=== PATIENT | female | born 2005 | race Caucasian/White ===

== ENCOUNTER 2025-05-20 15:28 | Outpatient (CLI) | payer BC, SELFPAY ==
--- NOTE | 2025-05-20 15:30 | MR_ITS ---
EXAM: MRI EXAMINATION OF THE RIGHT WRIST WITHOUT CONTRAST CLINICAL INFORMATION: Right wrist pain. History of injury. No history of surgery to this area. Evaluate scapholunate ligament injury. TECHNICAL INFORMATION: Axial PD and T2 fat saturation. Coronal PD, T2 and STIR. Sagittal PD fat saturation and T2-weighted images acquired. No prior studies for comparison. INTERPRETATION: Bones and joints: There is a prominent appearance of ulnar minus variance. Moderate to marked abnormal marrow edema signal along the ulnar aspect of the distal radial articulating surface. No evidence for bone marrow edema signal or sclerosis, and without evidence for fracture or fragmentation of the lunate. No other abnormal bone marrow edema pattern is identified. Triangular fibrocartilage: Intact appearance of the central disc of the TFC as well as the ulnar and foveal attachments. Ligaments: Partial tearing/stripping appears present along the lunate attachment of the central, membranous portion of the scapholunate ligament. The dorsal band of the ligament appears intact. The lunotriquetral ligament is normally intact. Tendons: The flexor and extensor tendons traversing the wrist are seen to be intact. No evidence for a tendon tear or any appreciable changes of tendinopathy. No evidence for tenosynovitis. Neurovascular structures: The median neve appears normal in signal intensity and morphology within the carpal tunnel. The ulnar neurovascular structures appear unremarkable. Soft tissues: No discrete soft tissue ganglion cyst is identified. CONCLUSION: 1. Prominent ulnar minus variance is identified. The TFC complex is seen to be intact. 2. No evidence for ischemia/necrosis of the lunate. 3. Moderate to marked bone marrow edema signal along the ulnar aspect of the distal radial articulating surface. No signal alteration within the adjacent lunate to indicate to indicate this as degenerative in etiology. This may be related to osseous contusion or stress reaction. 4. Partial tearing/stripping appears present along the lunate attachment of the central, membranous portion of the scapholunate ligament. If clinically indicated, arthrogram MRI could provide more accurate and detailed evaluation of the ligament. 5. No evidence for tendon pathology. 6. No soft tissue ganglion cyst. KES Electronically signed on 05/23/2025 8:10:00 AM by Jorge Luis Jaimes M.D.
== END 2025-05-20 15:29 | disposition home or self-care (01) ==
LOC: MRI 15:28
PROVIDERS: PCP Internal Medicine; Visit Provider Physician Assistant Surgical
DX: M25.531 Pain in right wrist (principal); S63.501A Unspecified sprain of right wrist, initial encounter; S69.91XA Unspecified injury of right wrist, hand and finger(s), initial encounter
CPT/HCPCS: 73221

== ENCOUNTER 2025-05-24 11:08 | Emergency (ER) | payer BC, SELFPAY ==
--- OUTSIDE RECORDS SUMMARY | 2008-11-28 08:30 | XMS_ITS | Continuity of Care Document ---
Author Organization [facility] Address [address] [address] [place] [address] Phone Care Team Providers Care Senior Education Specialist Name Role Phone Unavailable Unavailable Unavailable Allergies, Adverse Reactions, Alerts Substance Reaction Status Criticality No Known allergies Medications Medication Instructions Dosage Effective Dates (start - stop) Status Comments Miralax 17 gram/dose Oral Powder Use as directed-1/2-3/4ca pful daily - Active BENEFIBER (unknown strength) 1 teaspoon once daily Not Available - No Longer Active Miralax 17 gmsPOWDER Take 1 capful in 8 ounces of fluid every day - No Longer Active Procedures Procedure Date Offic/outpt E&m Estab Low-mod 9 Routine Serum Collection [id number] Offic Cons New/estab Mod 40 Mi 08 Results Test Name Date and Time Measure Units Reference Range Abnormal Flag Status Comments Panel Description: TSH Final TSH 2008 08:02:0 0 1.900 uIU/mL 0.460-8.100 Final Performed by: BELIA (1) Panel Description: Glia(IgG/A)+IgA+T-LOMAS Final Immunoglobulin A, Qn, Serum 2008 07:25:0 0 64 mg/dL 20-100 Final Performed by:Rowan Gonsales1) Deamidated Gliadin Abs, IgA 2008 11:00:0 0 0.7 U/mL 0.0-10.0 Final Performed by:Erasmo N (2) Deamidated Gliadin Abs, IgG 2008 11:00:0 0 0.7 U/mL 0.0-10.0 Final Performed by:Erasmo N (2) t-Transglutaminas e (tTG) IgA 2008 09:49:0 0 1 U/mL 0-3 Final Negative 0 - 3 Weak Positive 4 - 10 Positive >10 . Tissue Transglutaminase (tTG) has been identified as the endomysial antigen. Studies have demonstr- ated that endomysial IgA antibodies have over 99% specificity for gluten sensitive enteropathy.Perfor med by:BN (2) Advance Directives Directive Yes / No Effective Date File Name Resuscitation Not Answered N/A N/A Life Support Not Answered N/A N/A Intubation Not Answered N/A N/A Antibiotics Not Answered N/A N/A IV Fluid Support Not Answered N/A N/A Tube Feed Not Answered N/A N/A Other Directive N/A N/A WARNING:The information contained in this section is historical and is provided for information only and does not constitute a legal document or any assurance that the information is still accurate. Please verify the information with the grimaldo of the legal document before using it for clinical purposes. Encounters Encounter Description Practice Location Reason(s) For Visit Diagnoses Date Provider Providers Copied on Encounter Offic/outpt E&m Estab Low-mod [facility], [address] [address], [place], [place], [id number], tel:[phone] Pediatric Clinic Constipation (chief complaint) Constipation Unspecified 9 No Information Referring Provider: Jairo Price, [address] [place] [address], [address]. tel:[phone] Offic Cons New/estab Mod 40 Mi [facility], [address] [address], [place], [place], [id number], tel:[phone] Pediatric Clinic Constipation Unspecified 8 No Information Referring Provider: Jairo Price, [address] [place] [address] [place], [address]. tel:[phone] Family History Family Member Type Diagnosis Age At Onset First degree family history Problem (finding) peptic u lceration First degree family history Problem (finding) No history of Colon Rectal Cancer First degree family history Problem (finding) No Family history of No history of Colon Polyps First degree family history Problem (finding) No history of Ulcerative Colitis Paternal grandmother Problem (finding) peptic ulcerati on First degree family history Problem (finding) No histo ry of Crohn's Paternal grandmother Problem (finding) GERD Payers Payer name Insurance type Covered libertarian ID Authoriza tion(s) No Information Social History Type Description Quantity Date Captured Comments Alcohol Use Details Unknown Caffeine Use Details Unknown Tobacco Use Status No Information Smoking Status No Information Sex Female Chief Complaint And Reason For Visit From encounter dated '11/28/2008 14:30'. Constipation (chief complaint) Reason For Referral Reason For Referral No Information History Of Present Illness Encounter Date Complaint History Of Prese nt Illness No Information Functional Status Date Functional Assessmen t No Information Instructions Date Instruction Additional Infor mation No Information Assessments Type Assessment Date No Information Patient Care Teams Name Effective Dates (start - stop) Status Members No Information
--- OUTSIDE RECORDS SUMMARY | 2025-05-24 11:22 | XMS_ITS | Clinical Summary ---
Author Organization [employer] [facility] Address [address] [place] [address] Care Team Providers Care Manufacturing Engineering Technologist Name Role Phone Marcela Lowry DO Primary Care Provider Allergies Active AllergyReactionsCriticalityNoted DateCommentsDog DanderHivesMedium 12/29/2015Dust WhprwGmjesMofaoo22/29/2016Mold GioebwlpOiycoQedttb11/29/2016 Unlisted Allergen (Include Detail In Comments)HtszeGgzlii77/29/2016 Trevor and maple trees Medications MedicationSigDispense QuantityRefillsLast FilledStart DateEnd DateStatus cetirizine (ZYRTEC) 10 mg tablet Take 1 tablet by mouth once daily.Active Sodium Fluoride 1.1 % pste USE PEA SIZE AMOUNT ON TOOTH BRUSH TO BRUSH TEETH 2 TIMES DAILY FOR 2 MINUTES. 06/14/2022ctive escitalopram oxalate (LEXAPRO) 10 mg tablet Indications:Depression with anxietyTake 1 Tablet (10 mg) by mouth once daily in the morning. 90 Tablet ctive montelukast (SINGULAIR) 10 mg tablet Indications:Seasonal allergiesTake 1 Tablet (10 mg) by mouth at bedtime. 90 Tablet ctive ethinyl estradiol-norelgestrom 150 mcg-35 mcg/24 hr weekly patch Indications:Uses contraceptionApply 1 Patch on dry, clean, hairless skin once weekly. 12 Patch 5Active Active Problems ProblemNoted DateDiagnosed DateCOVID-19 vaccination lvacifuh46/01/2023Influenza vaccination ovtpcufx07/01/2023Uses rgnllmnnuwkav86/15/2022COVID-19 virus xqhcaytax02/30/2021 Overview (05/01/2021): Apr 2021 Depression with fniqzze0802/24/2020ADHD (attention deficit hyperactivity disorder), combined type02/07/2015Seasonal vvpwbekkx64/09/2014 Resolved Problems ProblemNoted DateDiagnosed DateResolved DateUnspecified dental cfzovo5911/23/2007 2013Unspecified pepphjwfdjbn16 Encounters DateTypeDepartmentCare OxgyBvmhjjlzgjz73/19/2025Orders Only [facility] Scanner 1 scan: (1-Ord) [place], WRIST RT WO CON, 05/20/2025from Last 3 Months Immunizations ImmunizationAdministration DatesNext VoeDLdZ2702/10/20076207KEvA-ZluW-GVO (Pediarix) 05/12/2006,03/10/2006,01/13/2006DTaP-IPV (Kinrix)10/26/2010HIB PRP-OMP (PedvaxHIB)02/10/2007,03/10/2006,01/13/2006HPV 9 (Gardasil 9)08/22/2017, 02/21/2017Hepatitis A (Peds)11/23/2007,11/24/2006Hepatitis B (Peds)2005 Influenza Virus, Fzdrhwueorh59/27/2010Influenza, IIV3 (Age 6-35 mos)03/16/2012, 06/11/2006,05/12/2006Influenza, IIV3 (Age >=3 years)03/16/2012,02/26/2010, 06/11/2006,05/12/2006Influenza, ANY042/08/2018,02/13/2018,02/21/2017,07/22/2016 MENINGOCOCCAL VACCINE 2 VIAL 2MO-55YO (MENVEO)11/26/2021,02/21/2017MMR11/24/2006 MMRV10/26/2010Pneumococcal conj 13-Valent (Prevnar 13)10/26/2010Pneumococcal conj 7-Valent (Prevnar 7)02/10/2007,05/12/2006,03/10/2006,01/13/2006Rotavirus Pentavalent (ROTATEQ)05/12/2006,03/10/2006,01/13/2006Tdap02/21/2017Varicella Fmrvkfl9001/13/2012,11/24/2006 Family History Medical HistoryRelationNameCommentsGood HealthFatherThyroid DiseaseMaternal Aunt 1DiabetesMaternal Aunt 2ArthritisMaternal Aunt 3DiabetesMaternal Grandfather CancerMaternal Grandmotherthyroid,uterineAllergiesMotherMigrainesMother Psychiatric illnessOtherCousins with ADHDHyperlipidemiaPaternal Grandfather HypertensionPaternal GrandfatherHeart DiseaseNo Family HistoryRelationNameStatus CommentsFatherMaternal Aunt 1Maternal Aunt 2Maternal Aunt 3Maternal Grandfather Maternal GrandmotherMotherOtherPaternal Grandfather Social History Tobacco UseTypesPacks/DayYears UsedDateSmoking Tobacco: Passive Smoke Exposure - Never SmokerSmokeless Tobacco: Never Tobacco Cessation:Counseling Given: Yes Comments:both parents smoke outside Alcohol UseStandard Drinks/WeekCommentsNever0 (1 standard drink = 0.6 oz pure alcohol)PHQ-2AnswerDate RecordedPHQ-2 TOTAL [id number] Connections AnswerDate RecordedDo you often feel lonely or isolated from those around you?0 07/18/2023Financial Resource StrainAnswerDate RecordedDifficulty of Paying Living Jlrwrmef708ifficulty of Paying Living ExpensesNot on file 07/18/2023Food InsecurityAnswerDate RecordedDo you worry your food will run out before you are able to buy more?Transportation NeedsAnswerDate RecordedDoes lack of transportation keep you from medical appointments?1 07/18/2023oes lack of transportation keep you from work, meetings or getting things that you need?Housing StabilityAnswerDate RecordedWhat is your housing situation today?UtilitiesAnswerDate RecordedDo you have trouble paying for utilities (for example, heat, electricity, water, phone)?1 07/18/2023CommentsNoSex and Gender InformationValueDate RecordedSex Assigned at BirthNot on fileLegal HfuMorjev24/14/2013 7:23 AM CSTGender Identity Not on fileSexual OrientationNot on file Obstetrics History GravidaParaTermPretermABIABSABEctopicMultipleLivingLive [id number] Last Filed Vital Signs Vital SignReadingTime TakenCommentsBlood Zrrrikow381/6805/20/2024 8:48 AM MOLD LOFT WORKER Qjilo161105/20/2024 8:48 AM FNXPsotkxktvkt79.7 ??C (98 ??F)03/05/2023 5:52 PM CDT Respiratory Jmvw761307/18/2023 8:51 AM CSTOxygen Xanurmvdik99%05/20/2024 8:48 AM CSTInhaled Oxygen Concentration--Ksosuq11.6 kg (160 lb)05/20/2024 8:48 AM MOLD LOFT WORKER Yytlui332.7 cm (5' 8)05/20/2024 8:48 AM CSTHead Svsyladobldvy62.8 cm11/09/2008 10:50 AM CDTBody Mass Index24.33107/21/2023 8:48 AM CSTBody Mass Index Percentile 77.20%05/20/2024 8:48 AM CSTGrowth Chart: CDC (Girls, 2-20 Years) Plan of Treatment DateTypeDepartmentCare Team (Latest Contact Info)Hcdvmwyixyc95/02/2026 8:[address] [facility] [address] [place] [address] Shashi Villanueva MD [address] [place] [address] Health MaintenanceDue DateLast DoneCommentsHIV for age 15-6506Hepatitis C screening for age 18-790[address]COVID-19 vaccine series ( - 2024-26 season) 2025Influenza Vaccine (#1), 02/13/2018, 02/21/2017, Additional history existsBMI (ht and wt on same day) for age 18+05/20/2025 05/20/2024epression screening for age 12+Well Child Check for age 3-, 11/26/2021, 11/24/2020, Additional history existsTetanus nrprqxr07Hepatitis B series for 19+Completed 05/12/2006, 03/10/2006, 01/13/2006, Additional history existsPneumococcal series for age 6-61Razqmtswl41/27/2011, 02/10/2007, 05/12/2006, Additional history existsHPV series for age 9-93Ccqxffejl24/23/2018, 02/21/2017Meningococcal series for age 11-14Vauywscfk62/27/2022, 02/21/2017 Procedures Procedure NamePriorityDate/TimeAssociated DiagnosisCommentsSCAN-MRI VXBVFYXJQMOAGI54/19/2025 12:00 AM CSTfrom Last 3 Months Results * SCAN-MRI INTERPRETATION (05/20/2025 12:00 AM MOLD LOFT WORKER)Anatomical RegionLaterality ModalityOther Narrative Authorizing ProviderResult TypeResult StatusScannerOTHERFinal Result from Last 3 Months Insurance * Guarantor: [facility] LAccount TypeRelation to PatientDate of BirthPhoneBilling AddressPersonal/FamilyOther [address] [place] [address] Care Teams Team MemberRelationshipSpecialtyStart DateEnd Date Marcela Lowry DO [address] [place] [address] LUIS M Henao [address] PCP - GeneralInternal Medicine10/05/18
[2025-05-24 11:34] VITALS: BP 120/84; PULSE 89; RESP 16; TEMP 37.2; O2SAT 97; BMI 23.9
--- NOTE | 2025-05-24 12:04 | ED_ITS ---
HPI - Wound/Laceration General Chief Complaint: Laceration/Wound Stated Complaint: R thumb lac Time Seen by Provider: 05/24/25 11:44 History of Present Illness HPI narrative: This 19-year-old female comes in with an avulsion injury to her right thumb. She was at work using a slicer and shaved off some skin on her right thumb that continues to bleed. Her tetanus status is up-to-date. Related Data Home Medications ?Medication ?Instructions ?Recorded ?Confirmed norelgestromin 150 mcg-e.estradiol 1 patch transdermal Q7D 03/24/25 05/24/25 35 mcg/24 hr weekly transderm patch (Xulane) Allergies Allergy/AdvReac Type Severity Reaction Status Date / Time No Known Drug Allergies Allergy Verified 05/24/25 11:38 Review of Systems 2 Status of ROS: Reports: 10 or more systems reviewed and unremarkable except as noted in History and below Narrative: Constitutional: No fevers, no weight gain or loss. Eyes: No discharge. No vision changes. HENT: No congestion, no sore throat, no ear pain. Cardiovascular: No chest pain, no palpitations. Respiratory: No shortness of breath, no wheezes, no cough. Gastrointestinal: No abdominal pain, no vomiting, no diarrhea. Genitourinary: No dysuria, no hematuria. Musculoskeletal: Normal range of motion. Skin: No rashes, no pruritis. Neurological: No dizziness, weakness, sensory change, speech change. Endo/Heme/Allergies: No bruising or bleeding. No polydipsia. Pysch: no suicidality, no anxiety, no insomnia. All other systems reviewed and are negative. Exam Narrative: Exam Narrative: Constitutional: Well-developed, well-nourished, no acute distress. HEENT: Normocephalic, atraumatic. Neck: Normal range of motion. Nontender. Supple. Heart: Regular. No murmurs. Normal rate. Intact distal pulses. Lungs: Clear to auscultation. No chest discomfort. No wheezes, rhonchi, or rales. Abdomen: Normal bowel sounds. Nontender. No rebound tenderness. Genitalia: Deferred. Back: No midline tenderness. Normal range of motion. Extremities: Normal range of motion. Avulsion injury of the skin of the right thumb occupying an area of approximately 1 cm in diameter. Skin: Intact. No rash. Warm. No erythema or pallor. Neurologic: No altered sensation. No weakness. Alert and oriented. Psychiatric: No suicidality. No anxiety or depression. No insomnia. Nursing notes and vitals signs are reviewed. Const: Vital Signs, click to edit/add: Vital Signs - 24 hr 05/24/25 11:34 Temperature 98.9 F Pulse Rate [Pulse Oximeter] 89 Respiratory Rate 16 Blood Pressure [Le ft Upper Arm] 120/84 Pulse Oximetry 97 Oxygen Delivery Me thod Room Air Course Vital Signs Vital signs: Initial Vital Signs Temperature 98.9 F 05/24/25 11:34 Temperature Source Temporal Artery Scan 05/24/25 11:34 Pulse Rate 89 05/24/25 11:34 Respiratory Rate 16 05/24/25 11:34 Blood Pressure 120/84 05/24/25 11:34 Blood Pressure Mean 96 05/24/25 11:34 Blood Pressure Position Sitting 05/24/25 11:34 Pulse Oximetry 97 05/24/25 11:34 Oxygen Delivery Method Room Air 05/24/25 11:34 Vital Signs Temperature 98.9 F 05/24/25 11:34 Pulse Rate 89 05/24/25 11:34 Respiratory Rate 16 05/24/25 11:34 Blood Pressure 120/84 05/24/25 11:34 Pulse Oximetry 97 05/24/25 11:34 Oxygen Delivery Method Room Air 05/24/25 11:34 Temperature 98.9 F 05/24/25 11:34 Pulse Rate 89 05/24/25 11:34 Respiratory Rate 16 05/24/25 11:34 Blood Pressure 120/84 05/24/25 11:34 Pulse Oximetry 97 05/24/25 11:34 Oxygen Delivery Method Room Air 05/24/25 11:34 MDM - Wound/Laceration MDM Narrative Medical decision making narrative: This patient has a skin avulsion injury of her right thumb that continues to bleed. I recommended using a tourniquet and then applying lidocaine with epin ephrine, silver nitrate, and Dermabond. The patient did not want to have any injections or silver nitrate. I did apply a ring exsanguinated ir and cleanse the wound. This was followed with Dermabond and a Band-Aid age with little extra a tension for direct pressure. Instructions regarding wound care were given. Discharge Plan Discharge Clinical Impression: Laceration Patient Disposition: Home, Self-Care Condition: Improved Additional Instructions: Keep wound clean and dry. Follow up with MD return worsening symptoms occur. Prescriptions: No Action norelgestromin-ethin.estradiol [Xulane] 150-35 mcg/24 hr patch weekly 1 patch transdermal Q7D Rx Instructions: apply once weekly for 3 weeks of a 4-week cycle Follow Up/Referrals: Marcela Lowry [Primary Care Provider, Internal Medicine] Stand Alone Forms: [facility] Info Instructions
== END 2025-05-24 12:27 | disposition home or self-care (01) ==
LOC: ED 12:10
PROVIDERS: Emergency Provider Emergency Medicine Emergency Medical Services; PCP Internal Medicine
DX: S61.011A Laceration without foreign body of right thumb without damage to nail, initial encounter (principal); W26.9XXA Contact with unspecified sharp object(s), initial encounter
CPT/HCPCS: 12001; 99282; 99284